=== PATIENT | female | born 1980 | race American Indian/Alaskan Native ===

== ENCOUNTER 2019-08-15 20:43 | Emergency (ER) | payer SELFPAY ==
[2019-08-15 22:41] VITALS: BP 131/76
== END 2019-08-15 21:56 | disposition left against medical advice (07) ==
LOC: ED 20:43
DX: R10.9 Unspecified abdominal pain (principal); Z53.21 Procedure and treatment not carried out due to patient leaving prior to being seen by health care provider
CPT/HCPCS: 93005; 93010